=== PATIENT | female | born 1955 | race Caucasian/White ===

== ENCOUNTER → 2017-03-24 | Outpatient (CLI) | payer BC ==
[~2017-03-24] MED LIST: CHOL100012 PO; FISH1CAP PO; UBID100C24 PO
[2017-03-24 15:00] LABS: HEMATOCRIT 45.7 % (34.6-47.8); HEMOGLOBIN 15.2 g/dL (11.7-16.4); WHITE BLOOD COUNT 6.3 x10^3/uL (3.4-10)
[2017-03-24 15:05] LABS: ASPARTATE AMINO TRANSFERASE 17 U/L (15-37); BLOOD UREA NITROGEN 15 mg/dL (7-18)
== END | disposition home or self-care (01) ==
LOC: STAR 13:49
PROVIDERS: ATTEND Surgery
DX: Z01.818 Encounter for other preprocedural examination (principal); R79.1 Abnormal coagulation profile
CPT/HCPCS: 36415; 80053; 85025; 85610; 93005

== ENCOUNTER 2017-03-31 07:39 | Day surgery (SDC) | payer BC ==
[~2017-03-31] VITALS: Ht 167.6 cm; Wt 71.1 kg
[~2017-03-31 07:39] MED LIST changes: +BUPIVACAINE/PF 0.5% ONE
[2017-03-31 08:44] VITALS: BP 126/78
[2017-03-31] MEDS ORDERED: LIDOCAINE 1%, 2ML ONE (08:57)
[2017-03-31] MEDS ORDERED: MIDAZOLAM 1 MG/ML, 2ML ONE (10:15)
[2017-03-31] MEDS ORDERED: FENTANYL PF 100 MCG/2ML ONE (10:15)
[2017-03-31] MEDS ORDERED: CEFAZOLIN 1,000 MG ONE ×2 (10:16)
[2017-03-31] MEDS ORDERED: KETAMINE 10 MG/ML, 20ML ONE (11:21)
[2017-03-31] MEDS ORDERED: PHENYLEPHRINE 10 MG/ML ONE (11:21)
[2017-03-31] MEDS ORDERED: DEXAMETHASONE 4 MG/ML, 1ML ONE ×2 (11:29)
[2017-03-31] MEDS ORDERED: BUPIVACAINE/PF-EPI 0.5% 1:200K IM ONE (11:37)
[2017-03-31] MEDS ORDERED: KETOROLAC 30 MG/1 ML ONE (12:01)
[2017-03-31] MEDS ORDERED: ONDANSETRON 2MG/ML, 2ML ONE ×2 (12:01)
[2017-03-31] MEDS ORDERED: hydrALAzine 20 MG/ML, 1ML IV PRN (12:30)
[2017-03-31] MEDS ORDERED: FENTANYL PF 100 MCG/2ML IV PRN (12:30)
[2017-03-31] MEDS ORDERED: ACETAMINOPHEN 325 MG TABLET PO PRN (12:30)
[2017-03-31] MEDS ORDERED: LABETALOL 5MG/ML, 20ML IV PRN (12:30)
[2017-03-31] MEDS ORDERED: MEPERIDINE/PF 25MG/0.5ML IVPush PRN (12:30)
[2017-03-31] MEDS ORDERED: ONDANSETRON 2MG/ML, 2ML IVPush PRN (12:30)
[2017-03-31] MEDS ORDERED: HYDROmorphone 1 MG/ML, 1ML IV PRN (12:30)
[2017-03-31] MEDS ORDERED: OXYcodone 5 MG/5 ML ORAL.SOL UDC PO PRN (12:30)
[2017-03-31] MEDS ORDERED: PROMETHAZINE 25 MG/ML, 1ML IV PRN (12:30)
== END 2017-03-31 13:30 ==
LOC: OUT 07:39
PROVIDERS: ATTEND Surgery
DX: C43.71 Malignant melanoma of right lower limb, including hip (principal); R59.9 Enlarged lymph nodes, unspecified; Z90.710 Acquired absence of both cervix and uterus; Z98.890 Other specified postprocedural states; Z88.8 Allergy status to other drugs, medicaments and biological substances; Z91.09 Other allergy status, other than to drugs and biological substances; Z72.89 Other problems related to lifestyle
CPT/HCPCS: 11606; 12032; 38999; 88307; J0690; J1100; J1885; J2250; J2370; J2405; J3010; J3490